=== PATIENT | male | born 1950 | race Caucasian/White ===

== ENCOUNTER 2021-02-12 09:43 | Day surgery (SDC) | payer OTHER ==
[~2021-02-12] VITALS: Ht 182.9 cm; Wt 86.1 kg
[~2021-02-12 09:43] MED LIST: ASPI81CH; BRIMONIDINE TART5 M1 LEFTEYE; CHOL10002; DORZOPSO LEFTEYE; LISI20 PO; PROBIOTIC1 EA13 PO; VITAMIN D310 MC4 PO
--- NOTE | 2021-02-12 10:11 | NUR ---
History, Chart, Medications and Allergies reviewed before start of procedure. Lungs clear T/O to Auscultation. Patient confirms NPO status and agrees with scheduled surgery. Pre-Op teaching done. Pt verbalizes understanding. Patient reports completing Chlorhexadine shower X2 prior to admission to hospital.
--- NOTE | 2021-02-12 18:14 | NUR ---
SHIFT SUMMARY PT AMBULATED WELL IN HALLWAY AND IN ROOM W/FWW & GB W/ MINIMAL ASSISTANCE. EATING & DRINKING WELL. PAIN IS MANAGABLE TO PT, 2/[address] ON R HIP, NO DRAINAGE PRESENT. CALL LIGHT IN REACH, WILL CONTINUE TO MONITOR UNTIL REPORT GIVEN TO ONCOMING RN.
--- NOTE | 2021-02-13 03:37 | NUR ---
SHIFT SUMMARY PT IS A/O X4, SBA IN ROOM. AMBULATING WITH SBA AND FWW. TOLERATING PO INTAKE AND VOIDING. PT HAS BEEN VERY PLEASANT AND COOPERATIVE WITH CARE. REPORTS PAIN IS WELL MANAGED WITH TYLENOL AND TORADOL. ALSO USING ICE PACK TO SURGICAL SITE. NO ACUTE CHANGES THIS SHIFT. PT RESTING IN BED, CALL LIGHT IN REACH.
[2021-02-13 04:10] LABS: BASOPHILS ABSOLUTE AUTO 0.03 K/mm3 (0.00-0.23); BASOPHILS PERCENT AUTO 0 % (0-2); EOSINOPHILS ABSOLUTE AUTO 0.14 K/mm3 (0.00-0.68); EOSINOPHILS PERCENT AUTO 2 % (0-6); Hematocrit 38.6 % (37.0-53.0); Hemoglobin 12.7 g/dL (13.5-17.5); IMMATURE GRAN ABSOLUTE AUTO 0.04 K/mm3 (0.00-0.10); IMMATURE GRAN PERCENT AUTO 0 % (0-1); LYMPHOCYTES ABSOLUTE AUTO 1.08 K/mm3 (0.84-5.20); LYMPHOCYTES PERCENT AUTO 12 % (21-46); MONOCYTES ABSOLUTE AUTO 1.09 K/mm3 (0.16-1.47); MONOCYTES PERCENT AUTO 12 % (4-13); Mean Corpuscular HGB 31.3 pg (26.0-34.0); Mean Corpuscular HGB Conc 32.9 g/dL (31.5-36.5); Mean Corpuscular Volume 95 fL (80-100); Mean Platelet Volume 9.4 fL (9.1-12.4); NEUTROPHILS ABSOLUTE AUTO 7.04 K/mm3 (1.96-9.15); NEUTROPHILS PERCENT AUTO 75 % (41-73); Platelet Count 193 K/mm3 (150-400); RDW Coefficient Variation 13.1 % (11.7-14.2); RDW Standard Deviation 46.3 fL (35.1-46.3); Red Blood Cell Count 4.06 M/mm3 (4.30-5.90); White Blood Cell Count 9.42 K/mm3 (4.00-11.30)
[2021-02-13 04:37] LABS: Anion Gap 2 mmol/L (6-16); Blood Urea Nitrogen 11 mg/dL (8-24); Bun/Creatinine Ratio 10.8 (12.0-20.0); CO2, Blood 30 mmol/L (21-32); Chloride, Blood 107 mmol/L (98-108); Creatinine, Blood 1.02 mg/dL (0.60-1.20); Glomerular Filtration Rate >60 (60-); Glucose, Blood 98 mg/dL (70-99); Potassium, Blood 3.5 mmol/L (3.5-5.5); Sodium, Blood 139 mmol/L (136-145)
--- NOTE | 2021-02-13 05:38 | NUR ---
RAPID RESPONSE ABOUT 0450 PT CALLED AND REPORTED NAUSEA. PT UP IN CHAIR WATCHING TV. RN ENTERED ROOM TO FIND PT UNRESPONSIVE, APPEARED TO BE CHOKING, AND EYES GLAZED OVER. PT INITIALLY PALE BUT THEN FACE BECAME VERY RED. METAL FURNACE OPERATOR CALLED. DR. BUTLER AT BEDSIDE. 500ML FLUID BOLUS, ZOFRAN, AND REGLAN GIVEN. EKG COMPLETED. PT HAD SECOND EPISODE WHILE PROVIDER WAS IN THE ROOM. PT TRANSFERRED TO BED. HAD SEVERAL EPISODES OF EMESIS; TOTAL OF ABOUT 50ML. PT IS RESTING IN BED AT THIS TIME.
--- NOTE | 2021-02-13 05:58 | NUR ---
PT IS RESTING IN BED, HOB ELEVATED. PT DENIES NAUSEA AND DIZZINESS. IV FLUIDS INFUSING PER ORDER. PT IS DROWSY BUT EASILY AWAKENING TO VERBAL STIMULI.
[2021-02-13] MEDS ORDERED: ASPI81CH PO (10:48)
[2021-02-13] MEDS ORDERED: Percocet 5-3251 EACH PO (10:51)
--- NOTE | 2021-02-13 11:35 | NUR ---
DISCHARGE NOTE: PATIENT WAS EDUCATED ON DISCHARGE INSTRUCTIONS. HE VERBALIZED UNDERSTANDING OF INSTRUCTIONS. INSTRUCTIONS ARE IN HIS PERSONAL BAG WELL HIS HARD PERSCRIPTIONS. HE IS ALERT AND ORIENTED X4. VS ARE WNL AND IS ON RA. PAIN IS MANAGED WITH TYLENOL. IV WAS DISCONTINUED AND WAS WNL. HIS WILL BE DRIVING HIM HOME. HE IS CURRENTLY BEING WHEELCHAIRED OUT TO THE CAR BY HVAC SERVICE TECHNICIAN.
== END 2021-02-13 11:35 | disposition home or self-care (01) ==
LOC: ORSCMMR 09:43 → ORD 11:00 → SURS 14:56 → ORSCMMR 02-13 11:35 → SURS 02-13 11:35
PROVIDERS: Orthopaedic Surgery
PROC: 0SR90JA Replacement of Right Hip Joint with Synthetic Substitute, Uncemented, Open Approach (ICD-10-PCS; principal; 2021-02-12 11:00)
DX: M16.11 Unilateral primary osteoarthritis, right hip (principal); I10 Essential (primary) hypertension; Z87.891 Personal history of nicotine dependence; Z79.899 Other long term (current) drug therapy
CPT/HCPCS: 36415; 72170; 80048; 85025; 93005; 93010; 97116; 97161; 97530; A9270; C1776; J0171; J0690; J0735; J1885; J2405; J2704; J2765; J2795; J3010; J7030; J7120

== ENCOUNTER 2024-10-13 13:56 | Emergency (ER) | payer OTHER ==
[~2024-10-13] VITALS: Ht 180.3 cm; Wt 92.1 kg
[~2024-10-13 13:56] MED LIST changes: +ASPI81CH PO; +Percocet 5-3251 EACH PO
[2024-10-13] MEDS ORDERED: Ondansetron HCl 2 MG / ML 2ML Vial ONE (14:01)
[2024-10-13 14:29] LABS: BASOPHILS ABSOLUTE AUTO 0.04 K/mm3 (0.00-0.23); BASOPHILS PERCENT AUTO 1 % (0-2); EOSINOPHILS ABSOLUTE AUTO 0.04 K/mm3 (0.00-0.68); EOSINOPHILS PERCENT AUTO 1 % (0-6); Hematocrit 47.8 % (37.0-53.0); Hemoglobin 16.2 g/dL (13.5-17.5); IMMATURE GRAN ABSOLUTE AUTO 0.02 K/mm3 (0.00-0.10); IMMATURE GRAN PERCENT AUTO 0 % (0-1); LYMPHOCYTES ABSOLUTE AUTO 2.46 K/mm3 (0.84-5.20); LYMPHOCYTES PERCENT AUTO 35 % (21-46); MONOCYTES ABSOLUTE AUTO 1.17 K/mm3 (0.16-1.47); MONOCYTES PERCENT AUTO 17 % (4-13); Mean Corpuscular HGB 32.4 pg (26.0-34.0); Mean Corpuscular HGB Conc 33.9 g/dL (31.5-36.5); Mean Corpuscular Volume 96 fL (80-100); Mean Platelet Volume 8.7 fL (9.1-12.4); NEUTROPHILS ABSOLUTE AUTO 3.33 K/mm3 (1.96-9.15); NEUTROPHILS PERCENT AUTO 47 % (41-73); Platelet Count 244 K/mm3 (150-400); RDW Coefficient Variation 13.8 % (11.7-14.2); RDW Standard Deviation 48.6 fL (35.1-46.3); White Blood Cell Count 7.06 K/mm3 (4.00-11.30)
[2024-10-13 14:54] LABS: Albumin, Blood 3.7 g/dL (3.4-5.0); Albumin/Globulin Ratio 1.1 (0.8-1.8); Bilirubin, Total 0.6 mg/dL (0.1-1.0); Bun/Creatinine Ratio 16.7 (12.0-20.0); Creatinine, Blood 1.14 mg/dL (0.60-1.20); Globulin, Blood 3.5 g/dL (2.2-4.0); Potassium, Blood 3.5 mmol/L (3.5-5.5); Total Protein, Blood 7.2 g/dL (6.4-8.2)
[2024-10-13 18:45] VITALS: BP 160/78
== END 2024-10-13 18:52 | disposition home or self-care (01) ==
LOC: ER 13:56
PROVIDERS: Student in an Organized Health Care Education/Training Program
DX: R55 Syncope and collapse (principal); R00.1 Bradycardia, unspecified; Z87.891 Personal history of nicotine dependence; Z79.82 Long term (current) use of aspirin; Z79.899 Other long term (current) drug therapy; Z91.048 Other nonmedicinal substance allergy status
CPT/HCPCS: 36415; 70450; 80053; 83605; 84484; 85025; 93005; 93010; 96374; 99284-25; J2405